=== PATIENT | female | born 1995 | race Caucasian/White ===

== ENCOUNTER 2023-07-12 07:38 | Inpatient (IN) | payer BC ==
[2023-07-12] MEDS ORDERED: Ondansetron 4 MG/2 ML SDV ONE (08:19)
[2023-07-12] MEDS ORDERED: fentaNYL 100 MCG/2 ML SDV ONE (08:28)
[2023-07-12] MEDS: Lactated Ringers 1,000 ML IV SCH ×3 (08:30→11:42)
[2023-07-12] MEDS ORDERED: Penicillin G Potassium 5 MILLUNITS in Sodium Chloride 0.9% 100 ML IV ONE (08:40)
[2023-07-12] MEDS ORDERED: Phenylephrine HCl In 0.9% NaCl 1 MG/10 ML Syringe IVPUSH PRN (08:50)
[2023-07-12] MEDS ORDERED: ePHEDrine 50 MG/ML SDV IVPUSH PRN (08:50)
[2023-07-12] MEDS ORDERED: Tranexamic Acid 1,000 MG in Sodium Chloride 0.9% 100 ML IV PRN (08:54)
[2023-07-12] MEDS ORDERED: Carboprost Tromethamine 250 MCG/1 ML Amp IM PRN (08:54)
[2023-07-12] MEDS ORDERED: Methylergonovine 0.2 MG/1 ML Amp IM PRN (08:54)
[2023-07-12] MEDS ORDERED: Acetaminophen 325 MG Tab PO PRN ×2 (08:54→15:46)
[2023-07-12] MEDS ORDERED: Ondansetron 4 MG/2 ML SDV IVPUSH PRN (08:54)
[2023-07-12] MEDS ORDERED: Misoprostol 400 MCG (4 X 100 MCG TAB) RECTAL PRN (08:54)
[2023-07-12] MEDS ORDERED: Lidocaine 1% 30 ML SDV INJECT ONE (08:54)
[2023-07-12] MEDS ORDERED: Sodium Chloride 0.9% 10 ML Syringe FLUSH PRN (08:54)
[2023-07-12] MEDS ORDERED: Ropivacaine 200 MG in Premix Bag 1 BAG EPIDUR SCH (09:00)
[2023-07-12] MEDS ORDERED: Oxytocin/Normal Saline 30 UNIT/500 ML BAG IV SCH (09:00)
[2023-07-12] MEDS: Penicillin G Potassium 5,000,000 Unit Vial ONE ×2 (09:08→09:11)
[2023-07-12] MEDS: Penicillin G Potassium 3 MILLUNITS in Sodium Chloride 0.9% 100 ML IV SCH ×2 (09:16→12:52)
[2023-07-12] MEDS ORDERED: Bupivacaine 0.25% 10 ML SDV EPIDUR ONE (09:30)
[2023-07-12] MEDS ORDERED: fentaNYL 100 MCG/2 ML SDV EPIDUR ONE (09:30)
[2023-07-12 13:37] LABS: BASOPHILS PERCENT AUTO 0.1 % (0.0-1.0); HEMATOCRIT 37.6 % (37.0-47.0); HEMOGLOBIN 12.8 g/dL (12.0-16.0); LYMPHOCYTES PERCENT AUTO 10.3 % (20.5-50.1); MEAN CORPUSCULAR HEMOGLOBIN 30.8 pg (27.0-34.0); MEAN CORPUSCULAR VOLUME 90.4 fL (80-100); MONOCYTES PERCENT AUTO 2.5 % (2-8); NEUTROPHILS PERCENT AUTO 87.1 % (42.2-75.2); PLATELET COUNT,PLT 362 10^3/uL (150-450); RED BLOOD CELL COUNT 4.16 10^6/uL (4.2-5.4)
[2023-07-12] MEDS ORDERED: Benzocaine/Menthol 20%-0.5% Spray 78 GM Cannister TOP PRN (15:46)
[2023-07-12] MEDS ORDERED: Measles, Mumps & Rubella Vaccine 0.5 ML SDV SUBCUT ONE (15:46)
[2023-07-12] MEDS ORDERED: Simethicone 80 MG Tab.Chew PO PRN (15:46)
[2023-07-12] MEDS ORDERED: Oxytocin 10 Units/1 ML SDV IM PRN (15:46)
[2023-07-12] MEDS ORDERED: Witch Hazel Medicated Pads 100/Jar TOP PRN (18:20)
[2023-07-12] MEDS: Ibuprofen 800 MG Tab PO PRN (21:11)
[2023-07-12] MEDS: Docusate Sodium 100 MG Cap PO PRN (21:11)
[2023-07-13] MEDS: Ibuprofen 800 MG Tab PO PRN ×2 (08:33→17:08)
[2023-07-13] MEDS: Docusate Sodium 100 MG Cap PO PRN ×2 (08:33→20:20)
[2023-07-13] MEDS: Prenatal Multivitamin with Calcium/Folic Acid/Iron Tab PO SCH (08:33)
[2023-07-14] MEDS: Ibuprofen 800 MG Tab PO PRN (08:21)
[2023-07-14] MEDS: Docusate Sodium 100 MG Cap PO PRN (08:21)
[2023-07-14] MEDS: Prenatal Multivitamin with Calcium/Folic Acid/Iron Tab PO SCH (08:21)
[2023-07-14 12:08] VITALS: BP 106/58; PULSE 92
== END 2023-07-14 12:45 | disposition home or self-care (01) | DRG 560 ==
LOC: DL.OBCHECK 07:38 → DL.OB 08:29 → UNDOADMOB 08:29 → OBSVTOIN 15:20 → INTOOBSV 15:20 → DL.OB 15:20
PROVIDERS: ADMIT Family Medicine; ATTEND Family Medicine
PROC: 10E0XZZ Delivery of Products of Conception, External Approach (ICD-10-PCS; principal; 2023-07-12)
PROC: 10907ZC Drainage of Amniotic Fluid, Therapeutic from Products of Conception, Via Natural or Artificial Opening (ICD-10-PCS; 2023-07-12)
PROC: 0KQM0ZZ Repair Perineum Muscle, Open Approach (ICD-10-PCS; 2023-07-12)
PROC: 3E0R3BZ Introduction of Anesthetic Agent into Spinal Canal, Percutaneous Approach (ICD-10-PCS; 2023-07-12)
PROC: 00HU33Z Insertion of Infusion Device into Spinal Canal, Percutaneous Approach (ICD-10-PCS; 2023-07-12)
DX: O48.0 Post-term pregnancy (principal); Z37.0 Single live birth; O99.814 Abnormal glucose complicating childbirth; O99.02 Anemia complicating childbirth; O99.824 Streptococcus B carrier state complicating childbirth; O26.893 Other specified pregnancy related conditions, third trimester; O70.1 Second degree perineal laceration during delivery; Z3A.40 40 weeks gestation of pregnancy; Z79.899 Other long term (current) drug therapy; Z67.91 Unspecified blood type, Rh negative; Z28.39 Other underimmunization status
CPT/HCPCS: 01967; 36415; 51701; 59025; 59409; 85025; 90471; 90707; A9270-GY; J2405; J2540; J2590; J2795; J3010; J3490; J7120